=== PATIENT | female | born 1965 | race African-American/Black ===

== ENCOUNTER 2017-06-10 09:07 | Emergency (ER) | payer OTHER | END 2017-06-10 10:07 | disposition home or self-care (01) | LOC: SCSER 09:07 | DX: K02.9 Dental caries, unspecified (principal); K05.30 Chronic periodontitis, unspecified; K03.81 Cracked tooth; I10 Essential (primary) hypertension; F31.9 Bipolar disorder, unspecified; F20.9 Schizophrenia, unspecified; F17.210 Nicotine dependence, cigarettes, uncomplicated; Z79.899 Other long term (current) drug therapy | CPT/HCPCS: 99282 ==

== ENCOUNTER 2018-07-17 16:40 | Emergency (ER) | payer OTHER ==
[2018-07-17] MEDS ORDERED: Meclizine HCl 25 MG TAB ONE (17:52)
[2018-07-17] MEDS ORDERED: Acetaminophen 500 MG TAB ONE (17:52)
[2018-07-17 17:53] LABS: #Basophils 0.1 thou/uL (0.0-0.2); #Eosinphils 0.2 thou/uL (0.0-0.7); #Lymphocytes 2.7 thou/uL (1.20-3.40); #Monocytes 0.5 thou/uL (0.11-0.59); #Neutrophils 2.9 thou/uL (1.40-6.50); %Basophils 1.1 % (0.0-1.0); %Eosinophils 3.2 % (0.0-10.0); %Lymphocytes 42.3 % (21.0-51.0); %Neutrophils 45.4 % (42.0-75.0); Hemoglobin 14.6 g/dL (12.0-16.0); Mean Corpuscular HGB CONC 33.8 g/dL (32.0-36.0); Mean Corpuscular Hemoglobin 33.3 pg (27.0-31.0); Mean Corpuscular Volume 98.5 fL (78.0-98.0); Mean Platelet Volume 8.7 fL (7.4-10.4); Platelet Count 140 thou/uL (130-400); RBC Distribution Width 13.2 % (11.5-14.5); Red Blood Cell (RBC) Count 4.37 mill/uL (4.20-5.40); White Blood Cell (WBC) Count 6.4 thou/uL (4.8-10.8)
[2018-07-17 18:08] LABS: ALT (SGPT) 26 U/L (8-55); AST (SGOT) 33 U/L (5-34); Albumin 3.9 g/dL (3.5-5.0); Alkaline Phosphatase 75 U/L (40-150); Anion Gap 12 mmol/L (10-20); BUN (Urea Nitrogen) 13 mg/dL (9.8-20.1); Bilirubin, Total 0.4 mg/dL (0.2-1.2); Calc. Creatinine Clearance 0 mL/min (70-130); Calcium 9.5 mg/dL (7.8-10.44); Carbon Dioxide 25 mmol/L (22-29); Chloride 105 mmol/L (98-107); Estimated GFR-MDRD 86; Globulin 3.6 g/dL (2.4-3.5); Glucose 117 mg/dL (70-105); Potassium 3.9 mmol/L (3.5-5.1); Protein, Total 7.5 g/dL (6.0-8.3); Sodium 138 mmol/L (136-145)
--- NOTE | 2018-07-17 18:14 | CT ---
NONCONTRAST CT HEAD 07/17/18 HISTORY: Dizziness and headache for three days. COMPARISON: 02/21/07. FINDINGS: There is no evidence of a hemorrhage, acute infarction, mass effect, or midline shift. The ventricula r system is normal in size, shape and position. There has been no interval change from the prior exam . IMPRESSION: No acute intracranial abnormality is demonstrated. POS: ANGELI
== END 2018-07-17 18:27 | disposition home or self-care (01) ==
LOC: ERS 16:40
DX: R42 Dizziness and giddiness (principal); R51 Headache; I10 Essential (primary) hypertension; F20.9 Schizophrenia, unspecified; F31.9 Bipolar disorder, unspecified; F17.210 Nicotine dependence, cigarettes, uncomplicated; Z79.899 Other long term (current) drug therapy
CPT/HCPCS: 36415; 70450; 80053; 84484; 85025; 93005; J8499

== ENCOUNTER 2018-10-24 11:00 | Emergency (ER) | payer OTHER ==
--- NOTE | 2018-10-24 11:54 | RAD ---
EXAM: 3 views of the right shoulder HISTORY: Shoulder pain COMPARISON: None FINDINGS: There is no evidence of acute fracture or dislocation. No degenerative changes are present. No soft tissue swelling is seen. The visualized thorax is unremarkable. IMPRESSION: No evidence of acute osseous abnormality.
[2018-10-24] MEDS ORDERED: Ketorolac Tromethamine 30 MG/ML VIAL ONE (12:01)
== END 2018-10-24 13:29 | disposition home or self-care (01) ==
LOC: SCSER 11:00
DX: M25.511 Pain in right shoulder (principal); K02.9 Dental caries, unspecified; M19.90 Unspecified osteoarthritis, unspecified site; I11.0 Hypertensive heart disease with heart failure; I50.9 Heart failure, unspecified; F20.9 Schizophrenia, unspecified; F31.9 Bipolar disorder, unspecified; F17.210 Nicotine dependence, cigarettes, uncomplicated; Z71.6 Tobacco abuse counseling
CPT/HCPCS: 93005; 99406; J1885

== ENCOUNTER 2018-11-17 13:16 | Outpatient (CLI) | payer OTHER ==
[~2018-11-17 13:16] MED LIST: EPINEPHrine 1 MG/ML AMP ONE; Gadobenate Dimeglumine 529 MG/1 ML (20ML VIAL) ONE; Iopamidol 300 61% 30 ML VIAL ONE; Lidocaine 1% PF 5 ML VIAL ONE
== END 2018-11-17 13:17 | disposition home or self-care (01) ==
LOC: RAD 13:16
PROVIDERS: ATTEND Pediatrics Sports Medicine
DX: Z53.9 Procedure and treatment not carried out, unspecified reason (principal)
CPT/HCPCS: A9577; J0171; J2001; Q9967

== ENCOUNTER 2018-11-30 13:20 | Outpatient (CLI) | payer OTHER ==
[~2018-11-30 13:20] MED LIST changes: +Lidocaine 1% PF 10 ML AMP ONE; -Lidocaine 1% PF 5 ML VIAL ONE
--- NOTE | 2018-11-30 14:49 | RAD ---
Exam: Right shoulder arthrogram: HISTORY: Right shoulder pain COMPARISON: None Fluoroscopy time 1.7 minutes with 4 portable fluoroscopic spot images. Dose 231.8 uGycm^2 Acid Concentrator films demonstrate mild degenerative changes of the A/C joint and glenohumeral joint. Following informed consent the right shoulder was prepped and draped in usual sterile fashion. Local anesthesia was obtained with 1% Xylocaine. A 22-gauge spinal needle was introduced into the anterior superior glenohumeral joint and contrast media including some gadolinium and iodinated contr ast media was injected. There appears to be a slight mixed injection with some contrast in the subscapularis myotendinous region. The patient moved considerably during the entire exam. There is no extension of contrast media into the subacromial or subdeltoid space. IMPRESSION: Successful right shoulder arthrogram. No extension of contrast media in the subacromial subdeltoid sp brianda. Following the procedure the patient will be moved to MRI for postarthrogram MRI to follow. MR agriculture technician just calling indicated the patient would not hold still for the MR and will attempt to have the patient moved to CT for a post CT to follow.
== END 2018-11-30 13:21 | disposition home or self-care (01) ==
LOC: RAD 13:20
PROVIDERS: ATTEND Pediatrics Sports Medicine
DX: M25.511 Pain in right shoulder (principal)
CPT/HCPCS: 23350; A9577; J0171; J2001; Q9967

== ENCOUNTER 2018-12-17 09:04 | Emergency (ER) | payer OTHER | END 2018-12-17 10:27 | disposition left against medical advice (07) | LOC: ERS 09:04 | DX: M79.605 Pain in left leg (principal); I11.0 Hypertensive heart disease with heart failure; I50.9 Heart failure, unspecified; F20.9 Schizophrenia, unspecified; F31.9 Bipolar disorder, unspecified; F17.210 Nicotine dependence, cigarettes, uncomplicated | CPT/HCPCS: 99283 ==

== ENCOUNTER 2021-04-23 10:43 | Emergency (ER) | payer OTHER | END 2021-04-23 10:58 | disposition left against medical advice (07) | LOC: ERS 10:43 | DX: Z53.21 Procedure and treatment not carried out due to patient leaving prior to being seen by health care provider (principal) ==

== ENCOUNTER 2024-02-12 11:25 | Emergency (ER) | payer OTHER ==
[2024-02-12 12:06] LABS: #Basophils Less than 0.03 10x3/uL (0.0-0.2); %Basophils 0.2 % (0.0-1.0); %Lymphocytes 44.8 % (21.0-51.0); %Monocytes 10.7 % (0.0-10.0); %Neutrophils 42.8 % (42.0-75.0); Hematocrit 41.7 % (36.0-47.0); Hemoglobin 14.3 g/dL (12.0-16.0); Mean Corpuscular HGB CONC 34.3 g/dL (32.0-36.0); Mean Corpuscular Hemoglobin 35.8 pg (27.0-31.0); Mean Corpuscular Volume 104.3 fL (78.0-98.0); Mean Platelet Volume 10.6 fL (7.4-10.4); Platelet Count 137 10x3/uL (130-400); RBC Distribution Width 14.9 % (11.5-14.5)
[2024-02-12] MEDS ORDERED: Ondansetron PF 4 MG/2 ML Vial ONE (12:24)
[2024-02-12 12:26] LABS: ALT (SGPT) 36 U/L (8-55); AST (SGOT) 110 U/L (5-34); Albumin 3.5 g/dL (3.5-5.0); Alkaline Phosphatase 87 U/L (40-110); Anion Gap 16 mmol/L (10-20); BUN (Urea Nitrogen) 8 mg/dL (9.8-20.1); Bilirubin, Total 0.7 mg/dL (0.2-1.2); Calc. Creatinine Clearance 0 mL/min (70-130); Calcium 8.5 mg/dL (7.8-10.44); Carbon Dioxide 18 mmol/L (22-29); Chloride 108 mmol/L (98-107); Estimated GFR 99; Globulin 3.5 g/dL (2.4-3.5); Glucose 156 mg/dL (70-105); Potassium 3.3 mmol/L (3.5-5.1); Sodium 139 mmol/L (136-145)
[2024-02-12 13:03] LABS: Acetaminophen Less than 10 mcg/mL (Less than 10); Salicylate Less than 8.0 mg/dL (Less than 8.0)
== END 2024-02-12 13:29 | disposition home or self-care (01) ==
LOC: ERS 11:25
DX: T40.2X1A Poisoning by other opioids, accidental (unintentional), initial encounter (principal); F10.129 Alcohol abuse with intoxication, unspecified; G47.30 Sleep apnea, unspecified; F17.210 Nicotine dependence, cigarettes, uncomplicated; I10 Essential (primary) hypertension
CPT/HCPCS: 36415; 71045; 80053; 80307; 85025; 93005; 96374; J2405